=== PATIENT | female | born 1985 | race Caucasian/White ===

== ENCOUNTER 2021-03-15 11:43 | Day surgery (SDC) | payer OTHER ==
[~2021-03-15 11:43] MED LIST: Lactated Ringers 0 ML IV ONE; Lactated Ringers 1,000 ML IV ONE; Sensorcaine 0.25% 10 ML ONE
[2021-03-15] MEDS ORDERED: CEFAZOLIN 2 GM-D5W BAG** 2 GM/50 ML ML IV SCH (12:00)
[2021-03-15] MEDS ORDERED: Lactated Ringers 1,000 ML IV SCH (12:00)
[2021-03-15] MEDS ORDERED: Transderm Scop 1.5MG Patch TOP ONE (12:36)
[2021-03-15] MEDS ORDERED: Transderm Scop 1.5MG Patch ONE (12:38)
[2021-03-15] MEDS ORDERED: DIPRIVAN 200 MG/20 ML IV ONE (14:49)
[2021-03-15] MEDS ORDERED: Xylocaine-Mpf 2% 5 Ml Vial ONE (14:49)
[2021-03-15] MEDS ORDERED: Zofran 4 MG/2 ML VIAL ONE ×2 (14:49→16:21)
[2021-03-15] MEDS ORDERED: Decadron 4 MG INJ ONE (14:49)
[2021-03-15] MEDS ORDERED: SUBLIMAZE 100 MCG/2 ML ONE (14:49)
[2021-03-15] MEDS ORDERED: TORAdol 30 mg Injection ONE (15:22)
[2021-03-15] MEDS ORDERED: Zofran 4 MG/2 ML VIAL IV STA (16:22)
[2021-03-15 16:59] VITALS: BP 147/90; PULSE 67; O2SAT 97
--- NOTE | 2021-03-16 12:02 | OP ---
SURGERY DATE: 03/15/2021 SURGERY TIME: 1447 PREOPERATIVE DIAGNOSIS: 1. LEFT BREAST MASS. POSTOPERATIVE DIAGNOSIS: 1. LEFT BREAST MASS. PROCEDURE: 1. Excisional biopsy of left breast mass. SURGEON: Jatinder Ny M.D. ANESTHESIA: General. CONDITION: Stable. COMPLICATIONS: None. SPECIMEN: 1. Left breast mass. ESTIMATED BLOOD LOSS: 5 ml. HISTORY OF PRESENT ILLNESS: The patient is a 35 year-old female that on physician exam noticed a lump in the left breast at about 2 o'clock periareolar. She underwent US and mammography which demonstrated complex cystic lesion consistent with physical exam findings. She was evaluated in the office. Discussion had with the patient options of percutaneous biopsy with follow-up exams and imaging vs excisional biopsy. She really just wants excisional biopsy. Discussion of risks of infection, bleeding, deformity, scar, pain, paresthesia and she elected to proceed. FINDINGS: Cystic lesion consistent with imaging. Excision is 3 X 2 X 1 cm. DESCRIPTION OF PROCEDURE: The patient was brought to the OR. General anesthesia induced. Routinely positioned, prepped, draped. Received a preoperative antibiotic. Time-out is performed. She was marked preoperatively. The lesion is palpable. It is at about 2-3 o'clock periareolar 1.5 cm lesion on palpation. A periareolar incision was made 2 cm which was carried down to the cystic lesion and circumferentially dissected free. It had clear margins. It was dissected free. Sent to pathology. There is no orientation. It was closely excised. There was good hemostasis. Deep dermal 3-0 Vicryl was placed and closed with 4-0 Vicryl sutures. Steri-strips and sterile dressing applied. Patient tolerated the procedure well. All counts are correct. Marcaine had been injected to the incision site. Plan is for extubation.
== END 2021-03-15 17:07 | disposition home or self-care (01) ==
LOC: SDC 11:43
PROVIDERS: ATTEND Surgery
DX: N60.32 Fibrosclerosis of left breast (principal); N60.02 Solitary cyst of left breast
CPT/HCPCS: 36415; 84702; 88305; J0690; J1100; J1885; J2405; J2704; J3010; A9270-GY

== ENCOUNTER 2024-09-09 09:49 | Emergency (ER) | payer OTHER ==
--- NOTE | 2024-09-09 10:20 | ERPHSYRPT ---
- History of Present Illness Time Seen by Provider: 09/09/24 10:20 Source: patient Exam Limitations: no limitations Physician History: This is a 39-year-old white female patient who presents with skin laceration lateral aspect right foot that occurred at 9 AM this morning. Patient was walking around in flip-flops when she scraped against something. She does not recall what it was. Her tetanus status is up-to-date. Timing/Duration: today Quality: painful Severity: mild Location: feet (Right foot distal, lateral aspect) Associated Symptoms: denies symptoms Allergies/Adverse Reactions: No Known Drug Allergies Allergy (Verified 09/09/24 10:21) Home Medications: No Reportable Medications [No Reported Medications] 09/09/24 [History] Travel Risk - International Travel Have you traveled outside of the country in past 3 weeks: No - Emerging Infectious Disease Are you exhibiting symptoms associated with any current EIDs: No - Review of Systems Constitutional: No Symptoms Eyes: No Symptoms Ears, Nose, & Throat: No Symptoms Respiratory: No Symptoms Cardiac: No Symptoms Abdominal/Gastrointestinal: No Symptoms Genitourinary Symptoms: No Symptoms Musculoskeletal: Injury (Right foot distal, lateral aspect) Skin: Other (Flap skin laceration distal, lateral aspect right foot) Neurological: No Symptoms Psychological: No Symptoms Endocrine: No Symptoms Hematologic/Lymphatic: No Symptoms Immunological/Allergic: No Symptoms All Other Systems: Reviewed and Negative - Past Medical History Neurological History: No Pertinent History Cardiac History: No Pertinent History Respiratory History: No Pertinent History Endocrine Medical History: No Pertinent History Musculoskeletal History: No Pertinent History Other Medical History: STATES DOES GO TO [facility] 1-2X MONTH FOR BACK AND NECK. HAD WENT TO [place] THE WEEK BEFORE AND HAD HIGH VELOCITY CERVICAL ADJUSTMENT. - Past Surgical History Past Surgical History: Yes Neuro Surgical History: No Pertinent History Cardiac: No Pertinent History Respiratory: No Pertinent History Gastrointestinal: No Pertinent History Genitourinary: No Pertinent History Musculoskeletal: No Pertinent History Female Surgical History: No Pertinent History Other Surgical History: wisdom teeth under conscious sedation - Social History Drug Use: none - Nursing Vital Signs Nursing Vital Signs: Initial Vital Signs Temperature 96.9 F 09/09/24 10:12 Pulse Rate 90 09/09/24 10:12 Respiratory Rate 18 09/09/24 10:12 Blood Pressure 147/72 09/09/24 10:12 O2 Sat by Pulse Oximetry 99 09/09/24 10:12 Pain Scale Pain Intensity 2 - Physical Exam General Appearance: no apparent distress, alert Eye Exam: PERRL/EOMI, eyes nml inspection Ears, Nose, Throat Exam: normal ENT inspection, moist mucous membranes Neck Exam: normal inspection, non-tender, supple, full range of motion Respiratory Exam: airway intact, No chest tenderness, No respiratory distress Gastrointestinal/Abdomen Exam: No tenderness Pelvic Exam: not done Rectal Exam: not done Back Exam: normal inspection, normal range of motion, No CVA tenderness, No vertebral tenderness Extremity Exam: normal range of motion, pelvis stable, lacerations (1/2 cm skin flap right foot distal/lateral aspect. No foreign body. Neurovascular is intact, tendons are intact. No active bleeding) Neurologic Exam: alert, oriented x 3, cooperative, senior statistician II-XII nml as tested, normal mood/affect, nml cerebellar function, nml station & gait, sensation nml Skin Exam: laceration (The above extremity section) Lymphatic Exam: No adenopathy SpO2 Interpretation: normal O2 Delivery: Room Air Procedures - Laceration/Wound Repair Left Lateral Distal Foot Time of Procedure: 11:15 Wound Location: Left, foot (Distal/lateral aspect) Wound Length (cm): 0.5 Wound's Depth, Shape: superficial, flap Wound Explored: clean (The wound was explored to the base in a bloodless field and no foreign body noted.) Irrigated: Yes Hibiclens Prep: Yes Wound Repaired With: Steri-strips, Dermabond - Course Nursing assessment & vital signs reviewed: Yes - Progress Progress: improved, re-examined Progress Note: 09/09/24 11:24 My medical decision making and the assignment of low complexity of this patient's medical issue today is based on review of the patient's past medical history, review of the patient's medication list, review of the patient's drug allergy list, history present illness and physical findings on examination. The workup in this patient does not necessitate radiographic or laboratory studies. Differential diagnosis includes but is not limited to skin abrasion, skin laceration Counseled pt/family regarding: diagnosis Medical Desision Making - Diagnostic Testing Diagnostic test were ordered, analyzed, and reviewed by me: No - Risk of complications Minimal Risk: Minimal risk of morbidity - Departure Departure Disposition: Home Clinical Impression: Laceration of skin of left foot Condition: Stable Critical Care Time: No Referrals: CELESTINA PALUMBO MD [Primary Care Provider] - Follow up/PCP as directed Additional Instructions: May use Tylenol and ibuprofen for pain control if there are no contraindications to do so. Keep the top bandage on for 24 hours. After 24 hours may remove the top bandage and leave the Steri-Strips in place. After 24 hours, may rinse the site off with soapy water. Blot dry use a chairperson anesthesiology to dry after rinsing off. Trim the Steri-Strips as they curl in the next 5 to 7 days.
[2024-09-09 10:21] VITALS: TEMP 96.9; O2SAT 99
[2024-09-09 11:05] VITALS: BP 140/74; PULSE 88; RESP 20
== END 2024-09-09 11:46 | disposition home or self-care (01) ==
LOC: ED 09:49
DX: S91.311A Laceration without foreign body, right foot, initial encounter (principal); W22.8XXA Striking against or struck by other objects, initial encounter
CPT/HCPCS: 12001; 99281; 99282